=== PATIENT | male | born 1985 | race African-American/Black ===

== ENCOUNTER 2016-05-23 14:15 | Emergency (ER) | payer OTHER ==
[~2016-05-23] VITALS: Ht 185.4 cm; Wt 88.5 kg
[~2016-05-23 14:15] MED LIST: ACETAMINOPHEN-1 EAC1 ORAL; AMOXICILLIN500 MG ORAL; AUGMENTIN 875-1 EAC1 ORAL; BENADRYL25 MG PO; CIPROFLOXACIN500 M2 ORAL; CYCLOBENZAPRINE10 MG ORAL; ERYTHROMYCIN3.5 GM BOTH EYES; IBUPROFEN600 MG ORAL; METRONIDAZOLE500 MG ORAL; NKM; NORCO 5-325 TA1 EAC1 ORAL; NORCO 5-325 TA1 EACH ORAL; OMEPRAZOLE40 M1 ORAL; OMEPRAZOLE40 M1 PO; PHENERGAN25 M1 ORAL; PREDNISONE20 MG ORAL; PRILOSEC OTC20 MG ORAL; PRILOSEC20 MG ORAL; PRINIVIL20 MG ORAL; PROMETHAZINE-C118 M1 ORAL; PROTONIX40 MG ORAL; RANITIDINE HCL150 MG ORAL; VICODIN 5-5001 EACH PO; ZANTAC150 MG ORAL; ZANTAC150 MG PO; ZOFRAN ODT4 MG ORAL; ZOFRAN4 MG ORAL
[2016-05-23] MEDS ORDERED: OMEPRAZOLE20 M3 ORAL (14:28)
[2016-05-23 14:51] VITALS: BP 149/96
[2016-05-23] MEDS ORDERED: Ketorolac 60mg Inj IM ONE (15:15)
--- NOTE | 2016-05-23 15:43 | Emergency Room Report ---
History of Present Illness General Chief Complaint: Lower Back Pain or Injury Source: Patient, Medical Record Present Illness HPI 30-year-old male presents emergency department complaining of that time severity low back pain that radiates across the back only and does not radiate down the legs x30 days. Patient denies history of trauma or fall. Patient also reports a sore throat denies fevers chills nausea or vomiting. Patient states he was seen by his PCP for his back pain was prescribed Motrin. Denies numbness tingling or loss of sensation or gross motor movements of the extremities, incontinence of bowel or bladder. Denies CP, Palpitations, LOC, AMS , dizziness, Changes in Vision, Sensation, paresthesias, or a sudden severe headache. Allergies: Coded Allergies: ACETAMINOPHEN (Unverified Allergy, Unknown, 11/26/15) ASPIRIN (Unverified Allergy, Unknown, 11/26/15) Patient History Past Medical History: see triage record Past Surgical History: none Pertinent Family History: none Immunizations: UTD Reviewed Nursing Documentation: PMH: Agreed, PSxH: Agreed Nursing Documentation-PMH Hx Cardiac Problems: Yes Hx Hypertension: Yes Hx Cancer: No Hx Gastrointestinal Problems: Yes - GERD Hx Neurological Problems: No Review of Systems All Other Systems: negative except mentioned in HPI Physical Exam Vital Signs Date Time Temp Pulse Resp B/P Pulse Ox O2 Delivery O2 Flow Rate FiO2 05/23/16 14:25 97.9 92 16 149/96 99 Room Air Sp02 EP Interpretation: reviewed, normal General Appearance: no apparent distress, alert, GCS 15, non-toxic Head: normocephalic, atraumatic Eyes: bilateral eye PERRL, bilateral eye normal inspection ENT: hearing grossly normal, normal pharynx, no angioedema, normal voice, TMs + canals normal, uvula midline, moist mucus membranes, pharyngeal erythema Neck: full range of motion, supple/symm/no masses Respiratory: lungs clear, normal breath sounds, speaking full sentences Cardiovascular #1: regular rate, rhythm, no edema Musculoskeletal: back normal, gait/station normal, normal range of motion, tender - TTP to the lumbar paraspinal muscles bilaterally, no midline ttp, no obvious deformities. pt has FROM with pain Neurologic: alert, oriented x3, responsive, motor strength/tone normal, sensory intact, normal gait, speech normal Psychiatric: judgement/insight normal, memory normal, mood/affect normal Skin: normal color, no rash, warm/dry, well hydrated Lymphatic: no adenopathy Medical Decision Making PA Attestation Dr. Shoemaker is my supervising Physician whom patient management has been discussed with. Diagnostic Impression: Primary Impression: Low back pain Qualified Codes: M54.5 - Low back pain Additional Impressions: Sore throat Post-nasal drainage ER Course Patient presents to the emergency department complaining of Low back pain x 30 day(s) and sore throat. no fevers. Ddx considered: epidural abscess, fracture, sprain/strain, meningitis, spinal chord injury., opiate dependence, post nasal drainage Vital signs reviewed and are WNL during ED visit. Pt. is afebrile with no signs of infection No new symptoms, and denies recent trauma. No saddle anesthesia noted, Pt. denies incontinence Neurovascular is intact ROM is limited due to pain * Mild Tenderness to palpation to paraspinal muscles of the lower back, no spinous process tenderness, no midline tenderness. *Pt. describes pain today as moderate and radiates across the lower back. ORDERS: none warranted at this time. INTERVENTIONS: - 60mg IM Toradol I reviewed this patient's CURES Report and saw that he recently filled #120 - 10 mg norco rx 2 weeks ago in addition to # 90 Xanax. I feel that this patient should have an adequate amount of medication to control his pain at this time. D/W Pt. that for further pain management is it recommended to consult PCP or a Chronic Pain management doctor. A provider who can safely prescribe controlled substances with close follow up. DISCHARGE: At this time pt. is stable for d/c to home. Will provide printed patient care instructions, and any necessary prescriptions. Care plan and follow up instructions have been discussed with the patient prior to discharge. Last Vital Signs Date Time Temp Pulse Resp B/P Pulse Ox O2 Delivery O2 Flow Rate FiO2 05/23/16 14:51 97.9 92 16 149/96 99 Room Air Disposition: HOME, SELF-CARE Condition: Stable Scripts Pseudoephedrine Hcl* (NEXAFED*) 30 Mg Tablet 30 MG ORAL Q6H Y for congestion for 7 Days, #28 TAB Prov: Letitia Lima 05/23/16 Cyclobenzaprine Hcl* (FLEXERIL*) 10 Mg Tablet 10 MG ORAL THREE TIMES A DAY for 7 Days, #21 TAB Prov: Letitia Lima 05/23/16 Referrals: JAGJIT RAGLAND (PCP) Patient Instructions: Back Pain, Adult, Sore Throat, [id number] Additional Instructions: Take medications as directed. Follow up with PCP in 3-5 days Return sooner to ED if new symptoms occur, or current symptoms become worse. Do not drink alcohol, drive, or operate heavy machinery while taking Flexeril as this may cause drowsiness. - Please note that this Emergency Department Report was dictated using [employer] technology software, occasionally this can lead to erroneous entry secondary to interpretation by the dictation equipment. Letitia Lima May 23, 2016 15:43
[2016-05-23 15:50] VITALS: BP 131/86
[2016-05-23] MEDS ORDERED: CYCLOBENZAPRINE10 MG ORAL (15:52)
[2016-05-23] MEDS ORDERED: NEXAFED30 MG ORAL (15:52)
== END 2016-05-23 16:22 | disposition home or self-care (01) ==
LOC: EMR 14:48
DX: M54.5 Low back pain (principal); J02.9 Acute pharyngitis, unspecified; R09.82 Postnasal drip; I10 Essential (primary) hypertension; K21.9 Gastro-esophageal reflux disease without esophagitis
CPT/HCPCS: 96372; 99284

== ENCOUNTER 2016-11-10 19:47 | Emergency (ER) | payer MEDICARE, OTHER ==
[~2016-11-10] VITALS: Ht 185.4 cm; Wt 93.0 kg
[~2016-11-10 19:47] MED LIST changes: +NEXAFED30 MG ORAL; +OMEPRAZOLE20 M3 ORAL
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
[2016-11-10 20:47] VITALS: BP 141/86
[2016-11-10 20:48] VITALS: BP 130/80
--- NOTE | 2016-11-11 10:48 | Diagnostic Imaging Report ---
Clinical Indication:PAIN Technique: 3 views of the right wrist Comparison: None Findings: No acute fractures. No dislocations. The joint spaces are preserved. Impression: Negative
== END 2016-11-10 20:55 | disposition home or self-care (01) ==
LOC: EMR 20:26
DX: S60.211A Contusion of right wrist, initial encounter (principal); V09.9XXA Pedestrian injured in unspecified transport accident, initial encounter; Y93.9 Activity, unspecified; Y92.410 Unspecified street and highway as the place of occurrence of the external cause; Z88.6 Allergy status to analgesic agent; I10 Essential (primary) hypertension; K21.9 Gastro-esophageal reflux disease without esophagitis
CPT/HCPCS: 99283

== ENCOUNTER 2018-06-22 15:19 | Emergency (ER) | payer MEDICARE, OTHER ==
[~2018-06-22] VITALS: Ht 185.4 cm; Wt 86.2 kg
[2018-06-22 15:35] VITALS: BP 127/81
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
--- NOTE | 2018-06-22 16:06 | NUR ---
ED Nurse Note: Patient went down to CT scan by wheelchair in stable condition.
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
[2018-06-22] MEDS ORDERED: ROBAXIN-750750 MG PO (17:13)
[2018-06-22 17:17] VITALS: BP 124/76
--- NOTE | 2018-06-22 17:18 | NUR ---
ER DISCHARGE NOTE: Patient is cleared to be discharged per ERPA, pt is aox4, on room air, with stable vital signs. pt was given dc and prescription instructions, pt was able to verbalize understanding, pt id band removed. pt is able to ambulate with steady gait. pt took all belongings.
== END 2018-06-22 17:43 | disposition home or self-care (01) ==
LOC: EMR 15:53
DX: S06.0X0A Concussion without loss of consciousness, initial encounter (principal); S00.83XA Contusion of other part of head, initial encounter; S20.222A Contusion of left back wall of thorax, initial encounter; S20.221A Contusion of right back wall of thorax, initial encounter; Y04.2XXA Assault by strike against or bumped into by another person, initial encounter; Y92.89 Other specified places as the place of occurrence of the external cause; Z88.6 Allergy status to analgesic agent; I10 Essential (primary) hypertension; K21.9 Gastro-esophageal reflux disease without esophagitis
CPT/HCPCS: 70450; 99284

== ENCOUNTER 2018-11-29 22:18 | Emergency (ER) | payer MEDICARE, OTHER ==
[~2018-11-29] VITALS: Ht 185.4 cm; Wt 86.2 kg
[~2018-11-29 22:18] MED LIST changes: +ROBAXIN-750750 MG PO
--- NOTE | 2018-11-29 22:35 | NUR ---
ED Nurse Note: Pt ambulated to ED from home c/o 12/01 abdominal pain with N/V since 1699, VSS Pt is A&Ox4
[2018-11-29 22:36] VITALS: BP 118/77
[2018-11-29] MEDS ORDERED: Mylanta II UD 30ml ORAL ONE (22:45)
[2018-11-29] MEDS ORDERED: Lidocaine 2% Visc 15ml soln ORAL ONE (22:45)
[2018-11-29] MEDS ORDERED: PRILOSEC OTC20 MG ORAL (22:54)
--- NOTE | 2018-11-29 22:55 | Emergency Room Report ---
History of Present Illness General Chief Complaint: Abdominal Pain Source: Patient Present Illness HPI This a 33-year-old male with a history of GERD and diverticulosis. Also history of high blood pressure. He presents with epigastric pain. Is been ongoing for 8 hours. No nausea no vomiting. No diarrhea. Swak-[id number] medicine not helping. Not take anything for this. He said that he has a history of diverticulosis and is causing his pain. Moved to the epigastric area. He denies any surgery. Pain is 7 out of 10. No radiation. Allergies: Coded Allergies: No Known Allergies (Unverified , 11/29/18) Patient History Past Medical History: see triage record, old chart reviewed, HTN Past Surgical History: other Pertinent Family History: none Social History: Denies: smoking Immunizations: other Reviewed Nursing Documentation: PMH: Agreed; PSxH: Agreed Nursing Documentation-PMH Hx Cardiac Problems: Yes Hx Hypertension: Yes Hx Cancer: No Hx Gastrointestinal Problems: Yes - GERD Hx Neurological Problems: No Review of Systems Eye: Denies: eye pain, blurred vision ENT: Denies: ear pain, nose congestion, throat swelling Respiratory: Denies: cough, shortness of breath Cardiovascular: Denies: chest pain, palpitations Gastrointestinal: Reports: abdominal pain; Denies: diarrhea, nausea, vomiting Musculoskeletal: Denies: back pain, joint pain Skin: Denies: rash Neurological: Denies: headache, numbness Endocrine: Denies: increased thirst, increased urine Hematologic/Lymphatic: Denies: easy bruising All Other Systems: negative except mentioned in HPI Physical Exam Vital Signs Date Time Temp Pulse Resp B/P (MAP) Pulse Ox O2 Delivery O2 Flow Rate FiO2 11/29/18 22:24 98.2 76 16 118/77 (91) 96 Room Air Vitals normal Sp02 EP Interpretation: reviewed, normal General Appearance: well appearing, no apparent distress, alert Head: normocephalic, atraumatic Eyes: bilateral eye PERRL, bilateral eye EOMI ENT: hearing grossly normal, normal pharynx Neck: full range of motion, supple, no meningismus Respiratory: chest non-tender, lungs clear, normal breath sounds Cardiovascular #1: regular rate, rhythm, no murmur Gastrointestinal: normal bowel sounds, no mass, no organomegaly, no bruit, non- distended, tenderness - Mild epigastric Musculoskeletal: back normal, gait/station normal, normal range of motion Psychiatric: mood/affect normal Medical Decision Making Diagnostic Impression: Primary Impression: Abdominal pain Qualified Codes: R10.13 - Epigastric pain ER Course Patient presents with epigastric abdominal pain. Most likely GERD or peptic ulcer disease in nature. Explained to patient that diverticulosis does not cause pain. Especially in the epigastric area. I see no evidence of an acute abdomen. No obstruction. Will discharge home. Last Vital Signs Date Time Temp Pulse Resp B/P (MAP) Pulse Ox O2 Delivery O2 Flow Rate FiO2 11/29/18 22:36 76 16 Room Air 11/29/18 22:36 98.2 118/77 96 Status: improved Disposition: HOME, SELF-CARE Condition: Stable Scripts Omeprazole Magnesium (PRILOSEC OTC) 20 Mg Tablet. 20 MG ORAL DAILY, #30 TAB Prov: Leonid Loya MD 11/29/18 Additional Instructions: Follow-up with your doctor in 7 days. You may benefit from a referral to see GI doctor for endoscopy. Return if symptoms worsen. Leonid Loya MD Nov 29, 2018 22:55
[2018-11-29 23:00] VITALS: BP 118/77
--- NOTE | 2018-11-29 23:00 | NUR ---
ER DISCHARGE NOTE: Patient is cleared to be discharged per ERMD, pt is aox4, on room air, with stable vital signs. pt was given dc and prescription instructions, pt was able to verbalize understanding, pt id band removed. pt is able to ambulate with steady gait. pt took all belongings.
== END 2018-11-29 23:00 | disposition home or self-care (01) ==
LOC: EMR 22:45
DX: R10.13 Epigastric pain (principal); I10 Essential (primary) hypertension; K21.9 Gastro-esophageal reflux disease without esophagitis; K57.90 Diverticulosis of intestine, part unspecified, without perforation or abscess without bleeding
CPT/HCPCS: 99282

== ENCOUNTER 2018-12-02 22:57 | Emergency (ER) | payer MEDICARE ==
[~2018-12-02] VITALS: Ht 185.4 cm; Wt 86.2 kg
--- NOTE | 2018-12-02 23:15 | NUR ---
ED Nurse Note: Patient in treatment room 1 complanining of epigastric pain since 15.00hrs.
[2018-12-02] MEDS ORDERED: Lidocaine 2% Visc 15ml soln ORAL ONE (23:45)
[2018-12-02] MEDS ORDERED: Dicyclomine HCl 10mg/5ml oral soln ORAL ONE (23:45)
[2018-12-02] MEDS ORDERED: Mylanta II UD 30ml ORAL ONE (23:45)
[2018-12-03 00:22] VITALS: BP 129/77
--- NOTE | 2018-12-03 02:24 | Emergency Room Report ---
History of Present Illness General Chief Complaint: Pain Source: Patient Present Illness HPI 33-year-old male presents ED for evaluation. Complaining of abdominal pain which started about 1 hour prior to arrival. Epigastric, burning, 4 out of 10, nonradiating. History of GERD. States that he was seen here a few days ago for similar presentation. Admits that he did not fill his prescription. Denies any fevers or chills. Denies any nausea or vomiting. Denies diarrhea. No other aggravating relieving factors. Denies any other associated symptoms Allergies: Coded Allergies: No Known Allergies (Unverified , 11/29/18) Patient History Past Medical History: GERD Past Surgical History: none Pertinent Family History: none Social History: Denies: smoking, alcohol use, drug use Immunizations: UTD Reviewed Nursing Documentation: PMH: Agreed; PSxH: Agreed Nursing Documentation-PMH Past Medical History: No Stated History Hx Cardiac Problems: Yes Hx Hypertension: Yes Hx Cancer: No Hx Gastrointestinal Problems: Yes - GERD Hx Neurological Problems: No Review of Systems All Other Systems: negative except mentioned in HPI Physical Exam Vital Signs Date Time Temp Pulse Resp B/P (MAP) Pulse Ox O2 Delivery O2 Flow Rate FiO2 12/02/18 23:13 98.4 74 18 129/77 (94) 95 Room Air Sp02 EP Interpretation: reviewed, normal General Appearance: no apparent distress, alert, GCS 15, non-toxic Head: normocephalic, atraumatic Eyes: bilateral eye normal inspection, bilateral eye PERRL ENT: hearing grossly normal, normal pharynx, no angioedema, normal voice Neck: full range of motion, supple/symm/no masses Respiratory: chest non-tender, lungs clear, normal breath sounds, speaking full sentences Cardiovascular #1: regular rate, rhythm, no edema Cardiovascular #2: 2+ carotid (R), 2+ carotid (L), 2+ radial (R), 2+ radial (L) , 2+ dorsalis pedis (R), 2+ dorsalis pedis (L) Gastrointestinal: normal bowel sounds, non tender, soft, non-distended, no guarding, no rebound Rectal: deferred Genitourinary: normal inspection, no CVA tenderness Musculoskeletal: back normal, gait/station normal, normal range of motion, non- tender Neurologic: alert, oriented x3, responsive, motor strength/tone normal, sensory intact, speech normal Psychiatric: judgement/insight normal, memory normal, mood/affect normal, no suicidal/homicidal ideation Reflexes: 3+ bicep (R), 3+ bicep (L), 3+ tricep (R), 3+ tricep (L), 3+ knee (R) , 3+ knee (L) Lymphatic: no adenopathy Medical Decision Making Diagnostic Impression: Primary Impression: Gastritis Qualified Codes: K29.00 - Acute gastritis without bleeding ER Course Hospital Course 33-year-old M presents to ED with epigastric pain differential diagnosis: gastritis, SBO, cholecystits Clinical course Patient placed on stretcher. On bus monitor. After initial history, physical exam reveals male in no acute distress. Abdomen is soft. No guarding or rebound. Vitals stable. Patient documents history of gastritis and did not fill his prescription as directed by previous physician. I do not believe patient requires additional work-up at this time. Patient given GI cocktail and Pepcid here. Will discharge to home. States that he will fill his prescription as directed. I feel this is a highly complex case requiring extensive working including EKG/ Rhythm strip, Xray/CT/US, Blood/urine lab work, repeat exams while in ED, and administration of strong opiates/narcotics for pain control, admission to hospital or close patient follow up. Diagnosis - gastritis Stable and discharged to home. Followup with PMD. Return to ED if symptoms recur or worsen Last Vital Signs Date Time Temp Pulse Resp B/P (MAP) Pulse Ox O2 Delivery O2 Flow Rate FiO2 12/03/18 00:22 98.4 74 18 129/77 95 Room Air Status: improved Disposition: HOME, SELF-CARE Condition: Stable Patient Instructions: Gastritis, Adult, [id number] Additional Instructions: take your previously prescribed medications as directed Raji Mcghee MD Dec 03, 2018 02:24
== END 2018-12-03 00:10 | disposition home or self-care (01) ==
LOC: EMR 23:34
DX: K29.00 Acute gastritis without bleeding (principal); K21.9 Gastro-esophageal reflux disease without esophagitis; I10 Essential (primary) hypertension
CPT/HCPCS: 99282

== ENCOUNTER 2019-10-19 00:34 | Emergency (ER) | payer MEDICARE ==
[~2019-10-19] VITALS: Ht 185.4 cm; Wt 95.3 kg
[2019-10-19 00:43] VITALS: BP 142/87
--- NOTE | 2019-10-19 00:43 | NUR ---
ED Nurse Note: Walk-in patient with complaints of dysuria and discharge.
[2019-10-19] MEDS ORDERED: Azithromycin 250mg tab ORAL ONE (01:00)
[2019-10-19] MEDS ORDERED: Lidocaine 1% MPF 10mg/ml 5ml INJ ONE (01:00)
--- NOTE | 2019-10-19 01:03 | Emergency Room Report ---
History of Present Illness General Chief Complaint: Male Urogenital Problems Source: Patient Present Illness HPI This is a 34-year-old male with no significant past medical history. He presents with chief complaint of dysuria and discharge. Onset for 1 day. Patient is sexually active with multiple partners. Unprotected sex. History of STD in the past. No testicular pain. No swelling. Worse with urination. No fever chills. No abdominal pain or joint pain. Allergies: Coded Allergies: No Known Allergies (Unverified , 11/29/18) COVID-19 Screening Contact w/high risk pt: No Experienced COVID-19 symptoms?: No COVID-19 Testing performed COLOR WEIGHER: No Patient History Past Medical History: see triage record, old chart reviewed Past Surgical History: none Pertinent Family History: none Social History: Denies: smoking Immunizations: other Reviewed Nursing Documentation: PMH: Agreed; PSxH: Agreed Nursing Documentation-PMH Hx Cardiac Problems: Yes Hx Hypertension: Yes Hx Cancer: No Hx Gastrointestinal Problems: Yes - GERD Hx Neurological Problems: No Review of Systems Eye: Denies: eye pain, blurred vision ENT: Denies: ear pain, nose congestion, throat swelling Respiratory: Denies: cough, shortness of breath Cardiovascular: Denies: chest pain, palpitations Gastrointestinal: Denies: abdominal pain, diarrhea, nausea, vomiting Genitourinary: Reports: discharge, dysuria Musculoskeletal: Denies: back pain, joint pain Skin: Denies: rash Neurological: Denies: headache, numbness Endocrine: Denies: increased thirst, increased urine Hematologic/Lymphatic: Denies: easy bruising All Other Systems: negative except mentioned in HPI Physical Exam Vital Signs Date Time Temp Pulse Resp B/P (MAP) Pulse Ox O2 Delivery O2 Flow Rate FiO2 10/19/19 00:39 98.2 76 18 142/87 (105) 99 Room Air Vitals with high blood pressure Sp02 EP Interpretation: reviewed, normal General Appearance: well appearing, no apparent distress, alert Head: normocephalic, atraumatic Eyes: bilateral eye PERRL, bilateral eye EOMI ENT: hearing grossly normal, normal pharynx Neck: full range of motion, supple, no meningismus Respiratory: chest non-tender, lungs clear, normal breath sounds Cardiovascular #1: regular rate, rhythm, no murmur Gastrointestinal: normal bowel sounds, non tender, no mass, no organomegaly, no bruit, non-distended Genitourinary: other - Patient is uncircumcised. Greenish discharge. Musculoskeletal: back normal, normal range of motion, gait/station normal Psychiatric: mood/affect normal Medical Decision Making Diagnostic Impression: Primary Impression: Urethritis ER Course Patient presents with urethritis. Most likely gonorrhea. No evidence of systemic spread. Will discharge home. Recommend outpatient testing for HIV, hepatitis, syphilis and other STDs. Told patient to have partners treated. Last Vital Signs Date Time Temp Pulse Resp B/P (MAP) Pulse Ox O2 Delivery O2 Flow Rate FiO2 10/19/19 00:43 98.2 87 18 142/87 99 Room Air Status: improved Disposition: HOME, SELF-CARE Condition: Stable Patient Instructions: Urethritis, Adult Additional Instructions: Have your partners treated. Follow-up with your doctor in 7 days as needed. Recommend outpatient testing for HIV, hepatitis, syphilis and other STDs. Return if worse. Leonid Loya MD Oct 19, 2019 01:03
--- NOTE | 2019-10-19 01:20 | NUR ---
ER DISCHARGE NOTE: Patient is cleared to be discharged per ERMD, pt is aox4, on room air, with stable vital signs. pt was given dc instructions, pt was able to verbalize understanding, pt id band removed without complications. pt is able to ambulate with steady gait. pt took all belongings.
[2019-10-19 01:23] VITALS: BP 132/86
== END 2019-10-19 01:20 | disposition home or self-care (01) ==
LOC: EMR 01:07
DX: N34.2 Other urethritis (principal); I10 Essential (primary) hypertension
CPT/HCPCS: 96372; 96374; 99284; J0696

== ENCOUNTER 2019-12-13 00:46 | Emergency (ER) | payer MEDICARE ==
[~2019-12-13] VITALS: Ht 182.9 cm; Wt 86.2 kg
[2019-12-13 00:54] VITALS: BP 108/72
--- NOTE | 2019-12-13 01:04 | Emergency Room Report ---
History of Present Illness General Chief Complaint: Abdominal Pain Source: Patient, Medical Record, EMS Present Illness HPI This is a 34-year-old male with a history of chronic abdominal pain. He presents with complaint abdominal pain. Onset 2 hours ago. Pain is diffuse in nature. But mostly lower quadrants however. No radiation. Pain is sharp. 9 out of 10. Has nausea but no vomiting. No diarrhea. No fever or chills. Unknown trigger. Movement and palpation made worse. Holding still made it better. Allergies: Coded Allergies: No Known Allergies (Unverified , 11/29/18) COVID-19 Screening Contact w/high risk pt: No Experienced COVID-19 symptoms?: No COVID-19 Testing performed [employer]ER: No Patient History Past Medical History: see triage record, old chart reviewed Past Surgical History: other Pertinent Family History: none Social History: Reports: alcohol use Immunizations: other Reviewed Nursing Documentation: PMH: Agreed; PSxH: Agreed Nursing Documentation-PMH Hx Cardiac Problems: Yes Hx Hypertension: Yes Hx Cancer: No Hx Gastrointestinal Problems: Yes - GERD Hx Neurological Problems: No Review of Systems Eye: Denies: eye pain, blurred vision ENT: Denies: ear pain, nose congestion, throat swelling Respiratory: Denies: cough, shortness of breath Cardiovascular: Denies: chest pain, palpitations Gastrointestinal: Reports: abdominal pain, nausea; Denies: diarrhea, vomiting Musculoskeletal: Denies: back pain, joint pain Skin: Denies: rash Neurological: Denies: headache, numbness Endocrine: Denies: increased thirst, increased urine Hematologic/Lymphatic: Denies: easy bruising All Other Systems: negative except mentioned in HPI Physical Exam Vital Signs Date Time Temp Pulse Resp B/P (MAP) Pulse Ox O2 Delivery O2 Flow Rate FiO2 12/13/19 00:44 97.9 90 18 135/89 (104) 99 Room Air Vitals normal Sp02 EP Interpretation: reviewed, normal General Appearance: well appearing, no apparent distress, alert Head: normocephalic, atraumatic Eyes: bilateral eye PERRL, bilateral eye EOMI ENT: hearing grossly normal, normal pharynx Neck: full range of motion, supple, no meningismus Respiratory: chest non-tender, lungs clear, normal breath sounds Cardiovascular #1: regular rate, rhythm, no murmur Gastrointestinal: no mass, no organomegaly, no bruit, non-distended, tenderness - Diffuse, decreased bowel sounds Musculoskeletal: back normal, normal range of motion, gait/station normal Psychiatric: mood/affect normal Medical Decision Making Diagnostic Impression: Primary Impression: Abdominal pain of unknown etiology Additional Impression: Colitis ER Course Presents with exacerbation of chronic abdominal pain. CT scan showed colitis. No evidence of acute abdomen obstruction. Feeling better now. Will discharge home. CT/MRI/US Diagnostic Results CT/MRI/US Diagnostic Results : Imaging Test Ordered: CT abdomen and pelvis Impression Read by radiologist. Colitis. Last Vital Signs Date Time Temp Pulse Resp B/P (MAP) Pulse Ox O2 Delivery O2 Flow Rate FiO2 12/13/19 00:54 76 23 Room Air 12/13/19 00:54 97.9 108/72 100 Status: improved Disposition: HOME, SELF-CARE Condition: Stable Scripts Hydrocodone/Acetaminophen 5-325* (HYDROCODONE/ACETAMINOPHEN 5-325*) 1 Each Tablet 1 TAB ORAL Q6H PRN for For Pain, #10 TAB 0 Refills Prov: Leonid Loya MD 12/13/19 Metronidazole* (FLAGYL*) 500 Mg Tablet 500 MG ORAL BID, #14 TAB Prov: Leonid Loya MD 12/13/19 Ciprofloxacin Hcl* (CIPROFLOXACIN HCL*) 500 Mg Tablet 500 MG ORAL Q12H, #14 TAB 0 Refills Prov: Leonid Loya MD 12/13/19 Additional Instructions: Advance diet as tolerated. Follow-up with your doctor in 2 to 3 days. Return if symptoms worsen. Leonid Loya MD Dec 13, 2019 01:04
[2019-12-13 01:14] LABS: BASOPHILS % (AUTO) 0.7 % (0.0-2.0); EOSINOPHILS % (AUTO) 1.3 % (0.0-3.0); HEMATOCRIT 41.2 % (42.0-52.0); HEMOGLOBIN 14.1 G/DL (14.2-18.0); LYMPHOCYTES % (AUTO) 28.3 % (20.0-45.0); MEAN CORPUSCULAR VOLUME 95 FL (80-99); NEUTROPHILS % (AUTO) 64.7 % (45.0-75.0); PLATELET COUNT 247 K/UL (150-450); RED BLOOD COUNT 4.36 M/UL (4.70-6.10); RED CELL DISTRIBUTION WIDTH 12.6 % (11.6-14.8); WHITE BLOOD COUNT 10.7 K/UL (4.8-10.8)
[2019-12-13] MEDS ORDERED: HYDROmorphone 1mg/ml Carpuject IVP ONE (01:15)
[2019-12-13 01:26] LABS: ANION GAP 8 mmol/L (5-15); BLOOD UREA NITROGEN 9 mg/dL (7-18); CALCIUM 8.8 MG/DL (8.5-10.1); CARBON DIOXIDE 30 MMOL/L (21-32); CHLORIDE 101 MMOL/L (98-107); CREATININE 1.3 MG/DL (0.55-1.30); POTASSIUM 3.7 MMOL/L (3.5-5.1); SODIUM 139 MMOL/L (136-145)
[2019-12-13 01:30] LABS: ALANINE AMINOTRANSFERASE 28 U/L (12-78); ALBUMIN/GLOBULIN RATIO 1.4 (1.0-2.7); ALKALINE PHOSPHATASE 61 U/L (46-116); ASPARTATE AMINO TRANSFERASE 19 U/L (15-37); BILIRUBIN,TOTAL 0.2 MG/DL (0.2-1.0)
--- NOTE | 2019-12-13 02:40 | Diagnostic Imaging Report ---
EXAM: CT Abdomen and Pelvis Without Intravenous Contrast CLINICAL HISTORY: ABD PAIN TECHNIQUE: Axial computed tomography images of the abdomen and pelvis without intravenous contrast. CTDI is 9.20 mGy and DLP is 530.90 mGy-cm. One or more of the following dose reduction techniques were used: automated exposure control, adjustment of the mA and/or kV according to patient size, use of iterative reconstruction technique. COMPARISON: No relevant prior studies available. FINDINGS: Lung bases: Unremarkable. No mass. No consolidation. ABDOMEN: Liver: Unremarkable. Gallbladder and bile ducts: Unremarkable. No calcified stones. No ductal dilation. Pancreas: Unremarkable. No ductal dilation. Spleen: Unremarkable. No splenomegaly. Adrenals: Unremarkable. No mass. Kidneys and ureters: 4 mm nonobstructing left midpole renal calculus. Stomach and bowel: Circumferential wall thickening of the ascending and transverse colon, consistent with colitis. No perforation or abscess. No small bowel obstruction. PELVIS: Appendix: No findings to suggest acute appendicitis. Bladder: Unremarkable. No stones. Reproductive: Unremarkable as visualized. ABDOMEN and PELVIS: Intraperitoneal space: Unremarkable. No free air. No significant fluid collection. Bones/joints: Postsurgical changes of the left greater trochanter, correlate for history of hip abductor surgery. No acute fracture. No dislocation. Soft tissues: Small fat-containing left inguinal hernia. Vasculature: Mild atherosclerotic change of the aorta. No abdominal aortic aneurysm. Lymph nodes: Unremarkable. No enlarged lymph nodes. IMPRESSION: 1. Circumferential wall thickening of the ascending and transverse colon, consistent with colitis. No perforation or abscess. 2. Nonobstructing 4 mm left midpole renal calculus. 3. Small fat-containing left inguinal hernia. 4. Postsurgical changes of the left greater trochanter, correlate for history of hip abductor surgery.
[2019-12-13 03:10] LABS: APPEARANCE,URINE CLEAR; BILIRUBIN, URINE NEGATIVE (NEGATIVE); COLOR,URINE PALE YELLOW; GLUCOSE, URINE (UA) NEGATIVE (NEGATIVE); KETONES,URINE NEGATIVE (NEGATIVE); LEUKOCYTE ESTERASE ,URINE NEGATIVE (NEGATIVE); NITRITE,URINE NEGATIVE (NEGATIVE); PH,URINE 6.5 (4.5-8.0); PROTEIN,URINE NEGATIVE (NEGATIVE); UROBILINOGEN,URINE NORMAL MG/DL (0.0-1.0)
[2019-12-13] MEDS ORDERED: HYDROCODON-ACE1 EA15 ORAL (03:16)
[2019-12-13] MEDS ORDERED: METRONIDAZOLE500 MG ORAL (03:16)
[2019-12-13] MEDS ORDERED: CIPROFLOXACIN500 M2 ORAL (03:16)
[2019-12-13 03:28] VITALS: BP 115/75
== END 2019-12-13 03:28 | disposition home or self-care (01) ==
LOC: EDBD 00:46 → EMR 01:15
DX: K52.9 Noninfective gastroenteritis and colitis, unspecified (principal); R10.9 Unspecified abdominal pain; K21.9 Gastro-esophageal reflux disease without esophagitis; I10 Essential (primary) hypertension
CPT/HCPCS: 36415; 74176; 80053; 81003; 83690; 85025; 96361; 96374; 96375; 99284; J1170; J2405; J7030